=== PATIENT | female | born 1995 | race Caucasian/White ===

== ENCOUNTER 2017-08-08 16:51 | Outpatient (CLI) | END 2017-08-08 21:18 | disposition home or self-care (01) ==

== ENCOUNTER 2017-08-15 00:10 | Inpatient (IN) | END 2017-08-16 10:30 | disposition home or self-care (01) | DRG 782 ==

== ENCOUNTER 2017-08-19 08:47 | Outpatient (CLI) | END 2017-08-19 09:40 | disposition home or self-care (01) ==

== ENCOUNTER 2017-09-03 13:01 | Outpatient (CLI) | END 2017-09-03 15:00 | disposition home or self-care (01) ==

== ENCOUNTER 2017-09-04 17:10 | Inpatient (IN) | END 2017-09-09 17:50 | disposition home or self-care (01) | DRG 766 ==